=== PATIENT | male | born 1960 | race Two or more races ===

== ENCOUNTER 2017-02-07 13:48 | Emergency (ER) | payer MEDICAID, MEDICARE ==
--- NOTE | 2017-02-07 14:21 | ED Physician Chart ---
Chief Complaint/HPI - Patient Information Date Seen:: 02/07/17 Time Seen:: 13:55 Chief Complaint:: R shoulder pain with movement History of Present Illness:: Pt. has had 2 days pain in R shoulder with movement. Pt. tried to lift 50 pound object with both hands, but only felt strain in R shoulder. Pain then developed gradually Allergies:: Allergies Allergy/AdvReac Type Severity Reaction Status Date / Time No Known Allergies Allergy Verified 02/07/17 13:56 Vitals:: Vital Signs - 8 hr 02/07/17 13:57 Temp 98.3 F HR 81 RR 17 BP 110/80 O2 Sat % 98 Review of Systems - Review of Systems General/Constitutional: No fever Skin: No skin lesions Head: No headache Neck: No neck pain Cardio Vascular: No chest pain Pulmonary: No SOB, No cough G/U: No dysuria Musculoskeletal: Bone or joint pain Psychiatric: No prior psych history Hematopoietic: No bruising Neurological: No focal symptoms Past Medical History - Past Medical History Past Medical History: No significant medical hx Social History: Smoker, Non Smoker, No Alcohol Surgical History: None Medication: None Family Medical History - Family Member Mother Living Status: Physical Exam - Physical Examination General/Constitutional: Awake, Well-developed, well-nourished, Alert, No distress, GCS 15, Non-toxic appearing, Ambulatory Head: Atraumatic Eyes: Lids, conjuctiva normal, PERRL, EOMI Skin: No rash ENMT: External ears, nose nl Neck: Nontender, Full ROM w/o pain, No nuchal rigidity Respiratory: Nl effort/Exclusion, Clear to Auscultation, No Wheeze/Rhonchi/Rales Cardio Vascular: RRR, No murmur, gallop, rubs : No CVA tenderness Other Extremities comments:: Limited spontaneous ROM secondary to pain. No deformity. Elbow and wrist normal. Neuro/Psych: Normal sensory exam Labs/Radiology/EKG Results - Lab Results Results: X-ray shows no fx or dislocation. Laterally, there is a calcification, apparently in deltoid area. Pt. recalls no previous injury. ED Septic Shock - . Is Septic Shock (SBP<90, OR Lactate>4 mmol\L) present?: No - <6hrs of presentation: Vital Signs: Vital Signs - 8 hr 07/05/17 13:57 Temp 98.3 F HR 81 RR 17 BP 110/80 O2 Sat % 98 Reassessment (Disposition) - Reassessment Reassessment Condition:: Improved - Diagnosis Diagnosis:: Dx: Acute rotator cuff strain/tendonitis - Aftercare/Follow up Instructions Aftercare/Follow-Up Instructions:: Counseled pt regarding lab results/diagnosis & need follow up Notes:: Maintain sling and follow-up with orthopedist, Dr. Finnegan or other. Return if worse. Medication Prescribed:: Rx: [place] 5/325 one po q5h prn. No driving. Disp. #15. No refill. - Patient Disposition Discharge/Transfer:: Home Condition at Disposition:: Stable ED Discharge Plan - Patient Disposition Admit/Discharge/Transfer: PT DISCHARGED HOME
--- NOTE | 2017-02-07 16:00 | Diagnostic Imaging Report ---
Exam: Right shoulder 2 views. HISTORY: right shoulder injury Multiple views of the right shoulder joint were obtained. The study demonstrates no evidence of fracture dislocation or subluxation. The acromioclavicular joint is intact. Small 8 mm calcification is noted in the lateral aspect of the right shoulder joint most likely represent was osteochondritis. IMPRESSION: Normal right shoulder examination, no evidence of fracture or dislocation.
== END 2017-02-07 15:30 | disposition home or self-care (01) ==
LOC: ER 13:48
DX: M25.511 Pain in right shoulder (principal); F17.200 Nicotine dependence, unspecified, uncomplicated
CPT/HCPCS: 73030-TC-RT; Z7502